=== PATIENT | male | born 1995 | race Hispanic/Latino ===

== ENCOUNTER 2016-07-31 17:28 | Emergency (ER) | payer OTHER ==
[~2016-07-31] VITALS: Ht 188 cm; Wt 73.6 kg
[2016-07-31 17:58] VITALS: BP 129/86; PULSE 106; RESP 24; O2SAT 99
--- NOTE | 2016-07-31 18:27 | ED.REPORT ---
HPI-Psychiatric Illness Date of Service Jul 31, 2016 ED Provider: Lai Woodall MD Patient is a 21 year old male who presents to the ED complaining of adverse reactions to Celexa that began earlier this evening. He states that the medication caused a "chemical imbalance" and withdrawal symptoms. Patient reportedly stopped the Celexa 6 weeks ago. Patient reports symptoms including, "blue toes", headache, fatigue and mood swings. He admits to intermittent episodes of vague suicidal ideation and worsening depression. His symptoms improved for a short period of time but returned. Patient has been previously seen at [facility] for his depression. He states that he has not been employed for the past year. He denies any history of EtOH use or psychiatric admission. Patient denies any homicidal ideation, insomnia, recent cough, fever , vomiting, or chills. Nursing Notes Stated Complaint: CHEMICAL IMBALANCE Chief Complaint: Psychiatric Complaint Nursing Notes Reviewed: Yes Allergies: Coded Allergies: No Known Allergies (Unverified , 07/31/16) General Time Seen by MD: 18:25 Chief Complaint Other (Withdrawal ) Hx Obtained From: Patient Arrived By: Walk-in Onset Occurred: 9 - 12 hours ago Symptom Duration: Since onset Progression Since Onset: Unchanged Location: : Head Quality: Aching Severity: Current: Mild Severity: Maximum: Mild Associated with: Reports: Depression, Denies: Fever Pertinent Negative: Pt denies other symptoms Recent Healthcare: No recent doctor visit, No recent hospitalization Risk-Psychiatric Illness Suicide Risk Stratification Suicide Risk Factors - Adult: No: Alcohol use, Prior psych admission RF Statements: Risk factors reviewed Past Medical History Past Medical History Depression - previously treated at [facility] Past Surgical History None reported. Smoking History Unknown if Ever Smoker Social History Alcohol Use: Denies alcohol use Drug Use: Denies drug use Other Social History: Local resident Occupation Unemployed Ambulatory Status Independent Review of Systems "blue toes" mood swings Constitutional: Denies: Chills, Fever GI: Denies: Nausea, Vomiting Neurologic: Reports: Headache Psychiatric: Reports: Depression, Stress, Suicidal ideation, Denies: Homicidal ideation, Insomnia Complete sys rev & neg: except as marked. Physical Exam Initial Vital Signs Vital Signs (First) Date Time Temp Pulse Resp B/P Pulse Ox O2 Delivery O2 Flow Rate FiO2 07/31/16 17:58 37.1 106 24 129/86 99 Room Air Initial VS: Reviewed Head / Eyes: Atraumatic, Normocephalic, PERRL Neck: Supple, Non-tender, Full range of motion Extremities: Vascular intact, Neuro intact, No swelling, No tenderness Skin: Warm, Dry, No cyanosis General/Constitutional: Awake, Alert, No acute distress Psychiatric: Not homicidal Abnormal Mood/Affect: Positive: Flat affect Abnormal Thinking / Perception: Positive: Suicidal, no plan Respiratory / Chest: Atraumatic, No respiratory distress Cardiovascular: Peripheral circulation NL, Pulses = bilaterally Abdomen: Atraumatic, Soft Interpretation & Diagnostics Lab Results Interpretation Result Diagram: 07/31/165 07/31/165 Test 07/31/16 18:55 White Blood Count 10.7th/mm3 (3.8-10.1) Red Blood Count 5.51mil/mm3 (4.40-5.80) Hemoglobin 16.6g/dL (13.8-17.2) Hematocrit 47.6% (41.0-50.0) Mean Corpuscular Volume 86.4fL (81-100) Mean Corpuscular Hemoglobin 30.1pg (27.0-35.0) Mean Corpuscular Hemoglobin Concent 34.9% (32.0-37.0) Red Cell Distribution Width 12.6% (12.3-15.4) Platelet Count 222bil/L (150-400) Neutrophils (%) (Auto) 59.0% (40-74) Lymphocytes (%) (Auto) 32.2% (14-46) Monocytes (%) (Auto) 7.6% (4-12) Eosinophils (%) (Auto) 0.6% (0-5) Basophils (%) (Auto) 0.2% (0-3) Sodium Level 138mEq/L (134-144) Potassium Level 4.2mEq/L (3.5-5.2) Chloride Level 100mEq/L (97-108) Carbon Dioxide Level 23mmol/L (18-29) Blood Urea Nitrogen 12mg/dL (6-20) Creatinine 0.64mg/dL (0.76-1.27) Estimat Glomerular Filtration Rate 166mL/min (>59) Glucose Level 99mg/dL (60-99) Calcium Level 9.6mg/dL (8.5-10.1) Total Bilirubin 0.3mg/dL (0.0-1.2) Aspartate Amino Transf (AST/SGOT) 39U/L (0-50) Alanine Aminotransferase (ALT/SGPT) 78U/L (0-44) Alkaline Phosphatase 119U/L (25-150) Total Protein 8.6g/dL (6.4-8.4) Albumin 4.7g/dL (3.4-5.0) Thyroid Stimulating Hormone (TSH) 1.200uIU/mL (0.450-4.500) Hold Rahman Top Tube Received (Received) Re-Eval/Medical Decision Re-Evaluation/Progress : Time of Eval: 19:30 Patient Status: Condition improved Re-Evaluation/Progress Note: Pt is informed of his results and the plan to discharge with follow up. He agrees to call [facility] tomorrow. Counseled Regarding: Diagnosis, Lab results, Need for follow-up, When/why to return to ED Discharge & Departure Impression: Primary Impression: Acute situational disturbance )( Condition at Discharge: No danger to self, No danger to others Disposition: Home Discharge Condition All VS Reviewed: Yes Condition: Stable Patient Instructions: Depression (ED) Additional Instructions: Thank you for trusting us with your care this evening. Your emergency department evaluation today is reassuring that there is no acute cause for concern at this time. I recommend that you schedule an appointment with a counselor at [facility] for tomorrow to reevaluate your treatment. Please return to the emergency department for any new or worsening conditions including any worsening depression or thoughts of harming yourself or others. If you are in crisis return to the emergency department otherwise call the public crisis line at Referrals: Miguel Angel Gutierrez DO (PCP) Crisis Respite Scribe Attestation Portions of this note were transcribed by Juan Pablo Traylor. I, Dr. Woodall personally performed the history, physical exam and medical decision-making; I reviewed and confirmed the accuracy of the information in the transcribed note. Signed by: Sp Gan, 07/31/161941. copies to: Miguel Angel Gutierrez Kirk H MD Jul 31, 2016 18:27 JUAN PABLO TRAYLOR Jul 31, 2016 18:51
[2016-07-31 19:13] LABS: BASOPHILS % (AUTO) 0.2 % (0-3); EOSINOPHILS % (AUTO) 0.6 % (0-5); MONOCYTES % (AUTO) 7.6 % (4-12); Mean Corpuscular Hemoglobin 30.1 pg (27.0-35.0); Mean Corpuscular Volume 86.4 fL (81-100); Platelet Count 222 bil/L (150-400)
== END 2016-07-31 19:42 | disposition home or self-care (01) ==
LOC: SED 17:28
DX: F43.0 Acute stress reaction (principal); T43.225A Adverse effect of selective serotonin reuptake inhibitors, initial encounter; X58.XXXA Exposure to other specified factors, initial encounter; Y93.9 Activity, unspecified; Y92.9 Unspecified place or not applicable; Y99.8 Other external cause status; F32.9 Major depressive disorder, single episode, unspecified